=== PATIENT | male | born 1990 | race Hispanic/Latino ===

== ENCOUNTER 2016-12-17 08:13 | Emergency (ER) | payer OTHER ==
[2016-12-17 08:20] VITALS: BP 141/82; PULSE 116; RESP 20; TEMP 98.2; O2SAT 95
[2016-12-17] MEDS ORDERED: Albuterol-Ipratrop 3 mg / 0.5 (3 ml) UD IH STA (08:38)
--- NOTE | 2016-12-17 08:42 | C.PDOC ---
History Of Present Illness 26 yr old male presents to the ER for evaluation of cough and congestion for 1 day. Patient reports he smokes cigarettes, 1 pack a day. Patient denies fever, chills, chest pain, SOB, nausea, vomiting, weakness or numbness. Time Seen by Provider: 12/17/16 08:15 Chief Complaint (Nursing): Cough, Cold, Congestion History Per: Patient History/Exam Limitations: no limitations Onset/Duration Of Symptoms: Days (1) Current Symptoms Are (Timing): Still Present Location Of Pain: None Sick Contacts (Context): None Past Medical History Reviewed: Historical Data, Nursing Documentation, Vital Signs Vital Signs: Last Vital Signs Temp 98.2 F 12/17/16 08:16 Pulse 116 H 12/17/16 08:16 Resp 20 12/17/16 08:16 BP 141/82 12/17/16 08:16 Pulse Ox 95 12/17/16 08:51 - Medical History PMH: Anxiety, Asthma, Back Problems, Bronchitis Surgical History: Appendectomy Family History: States: No Known Family Hx - Social History Hx Tobacco Use: Yes (1 pack a day) Hx Alcohol Use: Yes Hx Substance Use: No - Immunization History Hx Tetanus Toxoid Vaccination: Yes Hx Influenza Vaccination: No Hx Pneumococcal Vaccination: No Review Of Systems Except As Marked, All Systems Reviewed And Found Negative. Constitutional: Negative for: Fever, Chills ENT: Positive for: Nose Congestion Cardiovascular: Negative for: Chest Pain Respiratory: Positive for: Cough. Negative for: Shortness of Breath Gastrointestinal: Negative for: Nausea, Vomiting Neurological: Negative for: Weakness, Numbness Physical Exam - Physical Exam Appears: Well, Non-toxic, No Acute Distress Skin: Normal Color, Warm, Dry Head: Atraumatic, Normacephalic Eye(s): bilateral: Normal Inspection, PERRL, EOMI Ear(s): Bilateral: Normal Oral Mucosa: Moist Throat: Normal, No Erythema, No Exudate Neck: Normal, Normal ROM, Supple Chest: Symmetrical, No Tenderness Cardiovascular: Rhythm Regular, No Friction Rub, No Murmur Respiratory: Normal Breath Sounds, No Rales, No Wheezing Extremity: Normal ROM, No Swelling Neurological/Psych: Oriented x3, Normal Speech, Normal Motor Gait: Steady ED Course And Treatment O2 Sat by Pulse Oximetry: 95 - Radiology CXR: Interpreted by Me, Viewed By Me CXR Interpretation: Yes: No Acute Disease. No: Pnemothorax Progress Note: Patient refused nebulizer and requested discharge Reassessment Condition: Unchanged Medical Decision Making Medical Decision Making: PLAN: * CXR * Albuterol IH Disposition Counseled Patient/Family Regarding: Studies Performed, Diagnosis, Need For Followup, Rx Given - Disposition Referrals: [facility] [Outside] [facility] [Outside] Disposition: HOME/ ROUTINE Disposition Time: 09:00 Condition: GOOD Additional Instructions: Follow up with clnic or PMD for further evaluation Prescriptions: Albuterol HFA [Ventolin HFA 90 mcg/actuation (8 g)] 2 puff IH [id number] PRN #1 unit PRN Reason: Cough Instructions: Upper Respiratory Infection (ED) - POA Present On Arrival: None - Clinical Impression Clinical Impression: Upper respiratory infection - PA / FAMILY NURSE PRACTITIONER / Resident Statement MD/DO has reviewed & agrees with the documentation as recorded. - Scribe Statement The provider has reviewed the documentation as recorded by the Scribe Clara Hayes All medical record entries made by the Romibtim were at my direction and personally dictated by me. I have reviewed the chart and agree that the record accurately reflects my personal performance of the history, physical exam, medical decision making, and the department course for this patient. I have also personally directed, reviewed, and agree with the discharge instructions and disposition.
--- NOTE | 2016-12-17 09:02 | RAD ---
HISTORY: Cough COMPARISON: Comparison is made to the previous study dated 09/29/2016 TECHNIQUE: Chest PA and lateral FINDINGS: LUNGS: No active pulmonary disease. PLEURA: No significant pleural effusion identified. No pneumothorax apparent. CARDIOVASCULAR: Normal. OSSEOUS STRUCTURES: No significant abnormalities. VISUALIZED UPPER ABDOMEN: Normal. OTHER FINDINGS: None. IMPRESSION: No radiographic evidence of pneumonia.
== END 2016-12-17 09:10 | disposition home or self-care (01) ==
LOC: C.ER 08:13
DX: J06.9 Acute upper respiratory infection, unspecified (principal); Z72.0 Tobacco use

== ENCOUNTER 2016-12-19 17:33 | Inpatient (IN) | payer MEDICAID, OTHER ==
[2016-12-19 18:30] VITALS: O2SAT 99
--- NOTE | 2016-12-19 22:34 | C.PDOC ---
History Of Present Illness 26 year old patient presents to the ED requesting admission to detox from heroin and Xanax. Patient is not pre-screened. He was in a detox program a few months ago, but he relapsed. Patient admits to his last use being just prior to arrival. Patient states he feels like he is withdrawing. Patient denies chest pain, shortness of breath, vomiting, abdominal pain, suicidal or homicidal ideation. Time Seen by Provider: 12/19/16 22:28 Chief Complaint (Nursing): Substance Abuse History Per: Patient History/Exam Limitations: no limitations Onset/Duration Of Symptoms: Other Suicide/Self Injury Attempted (Context): None Modifying Factor(s): Narcotics Severity: None Recent travel outside of the [place]: No Past Medical History Reviewed: Historical Data, Nursing Documentation, Vital Signs Vital Signs: Last Vital Signs Temp 98.9 F 12/20/16 01:05 Pulse 90 12/20/16 01:05 Resp 18 12/20/16 01:05 BP 114/71 12/20/16 01:05 Pulse Ox 99 12/20/16 01:08 - Medical History PMH: Anxiety, Asthma, Back Problems, Bronchitis Surgical History: Appendectomy Family History: States: Unknown Family Hx - Social History Hx Tobacco Use: Yes (1 pack a day) Hx Alcohol Use: Yes Hx Substance Use: Yes - Immunization History Hx Tetanus Toxoid Vaccination: Yes Review Of Systems Except As Marked, All Systems Reviewed And Found Negative. Cardiovascular: Negative for: Chest Pain Respiratory: Negative for: Shortness of Breath Gastrointestinal: Negative for: Vomiting, Abdominal Pain Psych: Negative for: Suicidal ideation Physical Exam - Physical Exam Appears: Non-toxic, No Acute Distress Skin: Warm, Dry Head: Atraumatic, Normacephalic Neck: Normal ROM, Supple Chest: Symmetrical Cardiovascular: Rhythm Regular Respiratory: No Rales, No Rhonchi, No Wheezing Gastrointestinal/Abdominal: Soft, No Tenderness, No Guarding Back: Normal Inspection, No CVA Tenderness Extremity: Normal ROM Neurological/Psych: Oriented x3, Normal Speech, Normal Cognition ED Course And Treatment - Laboratory Results Result Diagrams: 12/20/16 01:11 O2 Sat by Pulse Oximetry: 99 (RA) Pulse Ox Interpretation: Normal Progress Note: Plan: -Labs. -Ativan, Catapres Medical Decision Making Medical Decision Making: Pt informed no beds are available for detox at this time. Patient states if he gets discharged, then he will kill himself. Pt placed in 1:1 labs sent seen by crisis and after discussion with dr Moscoso pt to be admitted to 5E Disposition Counseled Patient/Family Regarding: Need For Followup - Disposition Disposition: HOSPITALIZED Disposition Time: 00:59 Condition: FAIR - Clinical Impression Clinical Impression: Severe opioid use disorder, Major depress dis, severe - Scribe Statement The provider has reviewed the documentation as recorded by the Romibtim Fajardo Provider Attestation: All medical record entries made by the Romibtim were at my direction and personally dictated by me. I have reviewed the chart and agree that the record accurately reflects my personal performance of the history, physical exam, medical decision making, and the department course for this patient. I have also personally directed, reviewed, and agree with the discharge instructions and disposition. Decision To Admit - Pt Status Changed To: Hospital Disposition Of: Inpatient - Admit Certification Admit to Inpatient:: After my assessment, the patient will require hospitalization for at least two midnights. This is because of the severity of symptoms shown, intensity of services needed, and/or the medical risk in this patient being treated as an outpatient. - InPatient: Physician Admission Certification: I certify that this patient requires 2 or more midnights of care for the following reason:: protocol - . Bed Request Type: Psychiatry Admitting Physician: Reynaldo Moscoso Patient Diagnosis: Severe opioid use disorder, Major depress dis, severe
[2016-12-20 01:15] LABS: BASO % 0.7 % (0.0-2.0); EOS % 0.6 % (0.0-4.0); HEMATOCRIT 39.6 % (35.0-51.0); LYMPH # 1.1 K/uL (1.0-4.3); LYMPH % 22.3 % (20.0-40.0); MEAN CELL VOLUME 87.1 fL (80.0-94.0); MEAN CORPUSCULAR HEMOGLOBIN 28.9 pg (27.0-31.0); MEAN CORPUSCULAR HGB CONC 33.2 g/dL (33.0-37.0); MEAN PLATELET VOLUME 8.3 fL (7.2-11.7); MONO # 0.6 K/uL (0.0-0.8); MONO % 13.1 % (0.0-10.0); NRBC % 0.1 % (0.0-2.0); RED CELL DISTRIBUTION WIDTH 13.6 % (11.5-14.5); WHITE BLOOD COUNT 4.8 K/uL (4.8-10.8)
[2016-12-20 01:34] LABS: CHLORIDE 98 mmol/L (98-107)
[2016-12-20 01:35] LABS: ALB/GLOB RATIO 1.3 (1.0-2.1); ALCOHOL SERUM < 10 mg/dl (0-10); ALKALINE PHOSPHATASE 92 U/L (38-126); ALT/SGPT 247 U/L (21-72); AST/SGOT 82 U/L (17-59); BILIRUBIN,TOTAL 0.6 mg/dL (0.2-1.3); BLOOD UREA NITROGEN 11 mg/dL (9-20); CALCIUM 8.6 mg/dl (8.6-10.4); CARBON DIOXIDE 24 mmol/L (22-30); GFR AFRICAN-AMERICAN > 60; GLUCOSE,RANDOM 86 mg/dL (75-110); POTASSIUM 3.7 mmol/L (3.6-5.2); SODIUM 137 mmol/L (132-148)
[2016-12-20 01:54] LABS: RBC URINE 2 /hpf (0-3); URINE BILIRUBIN NEGATIVE (NEGATIVE); URINE BLOOD NEGATIVE (NEGATIVE); URINE COLOR Amber (YELLOW); URINE GLUCOSE (UA) NORMAL (Normal); URINE KETONE TRACE mg/dL (NEGATIVE); URINE LEUKOCYTE ESTERASE NEG Leu/uL (Negative); URINE PROTEIN 1+ mg/dL (NEGATIVE); WBC URINE 4 /hpf (0-5)
[2016-12-20] MEDS ORDERED: Aluminum Hydroxide/Magnesium Hydroxide Susp (30 mL) PO PRN (10:27)
--- NOTE | 2016-12-20 13:36 | PCM.PSYCH ---
Initial Psychiatric Evaluation - Initial Psychiatric Evaluation Type of Admission: Voluntary Legal Status: Capacity Chief Complaint (in patient's own words): "I was depressed" History of Present Illness and Precipitating Events: The pt is seen, chart reviewed and case discussed... He is known to the senior technical writer from detox admission. This is a 26 yo WM, single with 3 children, all<10 yo, unemployed and living at [facility] last 3 weeks. He says he was discharged administratively due to using heroin with 4 other men. He regrets relapsing and blames another man. He [facility], used up to 40 bags IV per day, plus 4-6 mg xanax daily and 1 ppd cigarettes. Denies others. He feels depressed and had SI but no plans. He claims he could have attempted had he not been admitted. Dep sxs positive, and anxiety, no hero or psychosis. This is his 7th detox and no rehab (except for 2 months at in ). No psych admissions as well. Past psych hx: Denies Family psych hx: Mother had dep/anxiety and brother was an alcoholic. Mo abused her painkillers too. Medical hx: HTN. No meds Current Medications: Active Medications Generic Name Dose Route Start Last Admin Trade Name Freq PRN Reason Stop Dose Admin Al Hydrox/Mg Hydrox/Simethicone 30 ml 12/20/16 10:27 Maalox 30 Ml PO TID PRN Indigestion / Heartburn Clonidine HCl 0.1 mg 12/20/16 10:27 Catapres PO Q8 PRN COWS Score More or Equal to 5 Fluoxetine HCl 20 mg 12/20/16 13:45 Prozac PO DAILY DIONICIO Loperamide HCl 2 mg 12/20/16 10:27 Imodium PO Q8 PRN Diarrhea Methadone HCl 15 mg 12/20/16 10:00 12/20/16 10:51 Methadone PO 12/23/16 09:59 15 mg Q24H DIONICIO Administration Taper Nicotine 1 patch 12/20/16 13:00 12/20/16 13:05 Nicoderm Cq TD 1 patch DAILY DIONICIO Administration Ondansetron HCl 4 mg 12/20/16 10:27 12/20/16 10:51 Zofran Tab PO 4 mg Q8 PRN Administration Nausea/Vomiting Trazodone HCl 100 mg 12/20/16 02:16 12/20/16 02:33 Desyrel PO 100 mg HS PRN Administration Insomnia Past Psychiatric History - Past Psychiatric History Previous Treatment History: None Pertinent Medical Hx (Current Medical&Sleep Prob, Allergies): Allergies Allergy/AdvReac Type Severity Reaction Status Date / Time shellfish derived Allergy Severe ANAPHYLAXIS Verified 09/28/16 12:46 traZODone [Desyrel] 50 mg PO HS PRN #30 tab 09/29/16 Albuterol HFA [Ventolin HFA 90 mcg/actuation (8 g)] 2 puff IH [id number] PRN #1 unit 12/17/16 Gabapentin [Neurontin] 600 mg PO BID 12/17/16 Review of Systems - Neurological Neurological: UNREMARKABLE - Psychiatric Psychiatric: Abnormal Sleep Pattern, Anhedonia, Anxiety, Depression, Difficulty Concentrating. absent: Hallucinations, Homicidal Ideation, Paranoia, Suicidal Ideation Mental Status Examination - Personal Presentation Personal Presentation: Looks stated age - Affect Affect: Constricted - Motor Activity Motor Activity: Calm - Reliability in Providing Information Reliability in Providing Information: Good - Speech Speech: Organized - Mood Mood: Depressed, Anxious - Formal Thought Process Formal Thought Process: No Impairment - Cognitive Functions Orientation: Person, Place, Situation, Time Sensorium: Drowsy Estimate of Intelligence: Average Judgement: Intact, as evidence by: Insight regarding need for hospitalization Memory: Recent intact, as evidence by: Ability to recall events of the day, Remote intact, as evidenced by: Abilit to recall sig. life events - Risk Risk: Seizure, Withdrawal, Diminished functioning - Strength & Assets Inventory Strength & Assets Inventory: Cooperative - Limitations Limitations: Living alone, Other (homeless and unemployed) DSM 5 DX - DSM 5 DSM 5 Diagnosis: Depressive d/o - unspecified Opioid use d/o -severe Opioid withdrawal Sedative, hypnotic use d/o -severe - Recommended/Plan of Treatment Treatment Recommendations and Plan of Treatment: Depression: - Prozac - Support and psychoed - CBt - Attend groups and activities Opioids: - Methadone detox - As needed meds - [place] for abstinence - refer to rehab Sedative hypnotic: - Librium detox 32 min Projected ELOS: 5-6 days Prognosis: Good with treatment
--- NOTE | 2016-12-21 16:10 | PCM.PYCHPN ---
Psychiatric Progress Note - Psychiatric Progress Note Patient seen today, length of contact: length of contact: 20 min Patient Chief Complaint: "I feel terrible" Problems Identified/Issues Discussed: The pt is seen, chart reviewed, case discussed with staff. Patient currently is experiencing anxiety. He feels his heart racing, shaking, and has a stuffy nose. He experiences hot and cold intolerance. Admits to nausea and vomiting. He vomited four times since last night. Denies abdominal pain. Pt denies thoughts of hurting himself or others. Denies visual or auditory hallucinations. Pt only slept a total of 1 hour the night before. After care discussed, support and psychoeducation given. Medical Problems: hypertension Medication Change: Yes (Methadone taper) Medical Record Reviewed: Yes Mental Status Examination - Cognitive Function Orientation: Person, Place, Situation, Time Memory: Intact Attention: WNL Concentration: WNL Association: WNL Fund of Knowledge: WN - Mood Mood: Depressed, Anxious - Affect Affect: Constricted - Speech Speech: Appropriate - Formal Thought Process Formal Thought Process: No Impairment - Suicidal Ideation Suicidal Ideation: No - Homicidal Ideation Homicidal Ideation: No Goal/Treatment Plan - Goal/Treatment Plan Need for Continued Stay: Remain at risks for inpatient hospitalization, Severe depression anxiety, Discharge may exacerbated symptoms Progress Toward Problem(s) and Goals/Treatment Plan: Depression: - Prozac - Support and psychoed - CBt - Attend groups and activities Opioids: - Methadone detox - As needed meds - [place] for abstinence - refer to rehab Sedative hypnotic: - Librium detox Estimated Date of D/C: 12/26/16 - Smoking Cessation Smoking Cessation Initiated: Yes
--- NOTE | 2016-12-22 14:31 | PCM.PYCHPN ---
Psychiatric Progress Note - Psychiatric Progress Note Patient seen today, length of contact: length of contact: 20 min Patient Chief Complaint: "I'm a little better" Problems Identified/Issues Discussed: Pt was seen, chart reviewed, and case discussed with staff. Pt is compliant with treatment, without any adverse effects. Reports continued body aches, however overall condition is improving. Nausea and vomiting have resolved. Denies abdominal pain, fever, chills, diaphoresis, agitation, suicidal ideation, homicidal ideation, and hallucinations. Pt states he plans on moving to [facility] and starting MAT following discharge. Psychoeducation and support given. Medical Problems: hypertension Medication Change: Yes (Methadone taper) Medical Record Reviewed: Yes Mental Status Examination - Cognitive Function Orientation: Person, Place, Situation, Time Memory: Intact Attention: WNL Concentration: WNL Association: WNL Fund of Knowledge: WNL - Mood Mood: Anxious - Affect Affect: Constricted - Speech Speech: Appropriate - Formal Thought Process Formal Thought Process: No Impairment - Suicidal Ideation Suicidal Ideation: No - Homicidal Ideation Homicidal Ideation: No Goal/Treatment Plan - Goal/Treatment Plan Need for Continued Stay: Remain at risks for inpatient hospitalization, Discharge may exacerbated symptoms Progress Toward Problem(s) and Goals/Treatment Plan: Depression: - Prozac - Support and psychoed - CBt - Attend groups and activities Opioids: - Methadone detox - As needed meds - [place] for abstinence - Attend groups and activities - refer to rehab Sedative hypnotic: - Librium detox Estimated Date of D/C: 12/26/16
--- NOTE | 2016-12-23 16:43 | PCM.PYCHPN ---
Psychiatric Progress Note - Psychiatric Progress Note Patient seen today, length of contact: length of contact: 20 min Patient Chief Complaint: "I haven't been sleeping" Problems Identified/Issues Discussed: Pt was seen, chart reviewed, and case discussed with staff. Pt complaint with treatment. Only complaint is poor sleep, despite taking trazodone. Pt denies myalgias, nausea, vomiting, abdominal pain, fever, chills, diaphoresis, suicidal ideation, homicidal ideation and hallucinations. Pt will be calling programs and making calls to obtain grants to organize aftercare today. Psychoeducation and support given. Medical Problems: hypertension Medication Change: No (Methadone taper completed ) Medical Record Reviewed: Yes Mental Status Examination - Cognitive Function Orientation: Person, Place, Situation, Time Memory: Intact Attention: WNL Concentration: WNL Association: WNL Fund of Knowledge: WNL - Mood Mood: Anxious - Affect Affect: Constricted - Speech Speech: Appropriate - Formal Thought Process Formal Thought Process: No Impairment - Suicidal Ideation Suicidal Ideation: No - Homicidal Ideation Homicidal Ideation: No Goal/Treatment Plan - Goal/Treatment Plan Need for Continued Stay: Remain at risks for inpatient hospitalization, Discharge may exacerbated symptoms Progress Toward Problem(s) and Goals/Treatment Plan: Depression: - Prozac - Support and psychoed - CBt - Attend groups and activities Opioids: - Methadone detox - As needed meds - [place] for abstinence - Attend groups and activities - refer to rehab Sedative hypnotic: - Librium detox Estimated Date of D/C: 12/26/16 - Smoking Cessation Smoking Cessation Initiated: No
--- NOTE | 2016-12-24 11:27 | PCM.PYCHPN ---
Psychiatric Progress Note - Psychiatric Progress Note Patient seen today, length of contact: 15 min Patient Chief Complaint: I am feeling a little better Problems Identified/Issues Discussed: The pt is seen, chart reviewed, case discussed with staff. The pt is compliant with medications and reports no side-effects. Pt. reports improvement in his sleep and mood. His symptoms are improving but needs more time to stabilize. After care discussed, support and psychoeducation given. Medication Change: Yes (Increase Neurontin) Medical Record Reviewed: Yes Mental Status Examination - Cognitive Function Orientation: Person, Place, Situation, Time Memory: Intact Attention: WNL Concentration: WNL Association: WNL Fund of Knowledge: WNL - Mood Mood: Anxious - Affect Affect: Constricted - Speech Speech: Appropriate - Formal Thought Process Formal Thought Process: No Impairment - Suicidal Ideation Suicidal Ideation: No - Homicidal Ideation Homicidal Ideation: No Goal/Treatment Plan - Goal/Treatment Plan Need for Continued Stay: Remain at risks for inpatient hospitalization, Discharge may exacerbated symptoms Progress Toward Problem(s) and Goals/Treatment Plan: Depressive d/o - unspecified Opioid use d/o -severe Opioid withdrawal Sedative, hypnotic use d/o -severe - Recommended/Plan of Treatment Treatment Recommendations and Plan of Treatment: Depression: - Prozac - Support and psychoed - CBt - Attend groups and activities Opioids: - Methadone detox - As needed meds - [place] for abstinence - refer to rehab Sedative hypnotic: - Librium detox Estimated Date of D/C: 12/26/16 - Smoking Cessation Smoking Cessation Initiated: Yes
--- NOTE | 2016-12-25 14:22 | PCM.PYCHPN ---
Psychiatric Progress Note - Psychiatric Progress Note Patient seen today, length of contact: 16 min Patient Chief Complaint: I am feeling much better Problems Identified/Issues Discussed: The pt is seen, chart reviewed, case discussed with staff. The pt is compliant with medications and reports no side-effects. Pt. reports improvement in his sleep and mood. His symptoms are improving and he is ready to be discharged tomorrow. After care discussed, support and psychoeducation given. Medication Change: No Medical Record Reviewed: Yes Mental Status Examination - Cognitive Function Orientation: Person, Place, Situation, Time Memory: Intact Attention: WNL Concentration: WNL Association: WNL Fund of Knowledge: WNL - Mood Mood: Anxious - Affect Affect: Constricted - Speech Speech: Appropriate - Formal Thought Process Formal Thought Process: No Impairment - Suicidal Ideation Suicidal Ideation: No - Homicidal Ideation Homicidal Ideation: No Goal/Treatment Plan - Goal/Treatment Plan Need for Continued Stay: Remain at risks for inpatient hospitalization, Discharge may exacerbated symptoms Progress Toward Problem(s) and Goals/Treatment Plan: Depressive d/o - unspecified Opioid use d/o -severe Opioid withdrawal Sedative, hypnotic use d/o -severe Depression: - Prozac - Support and psychoed - CBt - Attend groups and activities Opioids: - Methadone detox - As needed meds - [place] for abstinence - refer to rehab Sedative hypnotic: - Librium detox Estimated Date of D/C: 12/26/16 - Smoking Cessation Smoking Cessation Initiated: Yes
[2016-12-26 08:19] VITALS: BP 108/69; PULSE 54; RESP 20; TEMP 97.6
[2016-12-26] MEDS ORDERED: Benzocaine 10% Oral Anesthetic (12 ml) MM PRN (08:40)
--- NOTE | 2016-12-26 08:57 | PCM.PYCHDC ---
Mental Status Examination - Mental Status Examination Orientation: Person, Place, Situation, Time Memory: Intact Mood: Anxious Affect: Constricted Speech: Appropriate Attention: WNL Concentration: Poor Association: WNL Fund of Knowledge: WNL Formal Thought Process: No Impairment Suicidal Ideation: No Current Homicidal Ideation?: No Discharge Summary - Discharge Note Reason for Hospitalization: Depression, heroin detox Consultations:: List each consultation separately and include: 1. Reason for request. 2. Findings. 3. Follow-up Summary of Hospital Course include:: 1. Description of specific treatment plan utilized for patients during their course of treatmen. 2. Summarize the time- course for resolution of acute symptoms and/or regressed behaviors. 3. Describe issues identified and worked on during hospitalization. 4. Describe medication utilized. 5. Describe medical problems identified and treated. 6. Reassessment of suicide risk Summary of Hospital Course: The pt is seen, chart reviewed and case discussed. On admission: He is known to the jingle writer from detox admission. This is a 26 yo WM, single with 3 children, all<10 yo, unemployed and living at [facility] last 3 weeks. He says he was discharged administratively due to using heroin with 4 other men. He regrets relapsing and blames another man. He has stayed 3 weeks at the care home, used up to 40 bags IV per day, plus 4-6 mg xanax daily and 1 ppd cigarettes. Denies others. He feels depressed and had SI but no plans. He claims he could have attempted had he not been admitted. Dep sxs positive, and anxiety, no hero or psychosis. This is his 7th detox and no rehab (except for 2 months at in ). No psych admissions as well. Past psych hx: Denies Family psych hx: Mother had dep/anxiety and brother was an alcoholic. Mo abused her painkillers too. Medical hx: HTN. No meds Hospital course: The pt was admitted and started on treatment with psychotherapy, support, psychoeducation and medications. TX and CBT used. The pt attended groups and activities, as well as milieu therapy. All the risks and benefits of medications are discussed and the patient understood and agreed. He was med-seeking, unmotivated, and had poor insight. After care discussed with the patient. He decided to go [facility] where his mo lives but on the day of discharge he did not wait for [facility] and was seen outside the hospital walking around. He was waiting for another patient who is also being dc'ed and that pt had subs abuse too. He is warned about relapse risk. - Final Diagnosis (DSM 5) Condition upon Discharge: FAIR DSM 5: Depression - unspecified Opioid use d/o - severe Opioid withdrawal Sedative, hypnotic anxiolytic use d/o - severe Disposition: HOME/ ROUTINE Follow-up Treatment Plan: Continue below medications after discharge. Follow after care plan as discussed. [place] when there is a bed. Use relapse prevention skills Return to ER or call 911 if suicidal, homicidal or symptoms relapse. Stay away from stress, alcohol and drugs. Prescriptions/Medication Reconciliation: traZODone [Desyrel] 100 mg PO HS PRN #30 tab PRN Reason: Insomnia Gabapentin [Neurontin] 600 mg PO TID #90 cap FLUoxetine [Prozac] 20 mg PO DAILY #30 cap - Smoking Cessation Smoking Cessation Medication prescribed: No - Antipsychotic Medications Pt discharged on 2 or more routine antipsychotic medications: No
== END 2016-12-26 10:30 | disposition home or self-care (01) | DRG 745 ==
LOC: C.ER 17:33 → C.5E 12-20 00:57
PROVIDERS: ADMIT Psychiatry & Neurology Psychiatry; ATTEND Psychiatry & Neurology Psychiatry
PROC: HZ2ZZZZ Detoxification Services for Substance Abuse Treatment (ICD-10-PCS; principal; 2016-12-20)
PROC: GZ56ZZZ Individual Psychotherapy, Supportive (ICD-10-PCS; 2016-12-20)
DX: F11.23 Opioid dependence with withdrawal (principal); I10 Essential (primary) hypertension; J45.909 Unspecified asthma, uncomplicated; Z87.891 Personal history of nicotine dependence; F32.9 Major depressive disorder, single episode, unspecified; F41.9 Anxiety disorder, unspecified; F19.10 Other psychoactive substance abuse, uncomplicated; F15.10 Other stimulant abuse, uncomplicated

== ENCOUNTER 2017-01-04 23:16 | Inpatient (IN) | payer MEDICAID, OTHER ==
[2017-01-05 00:49] LABS: BASO # 0.1 K/uL (0.0-0.2); EOS # 0.1 K/uL (0.0-0.7); EOS % 1.4 % (0.0-4.0); HEMATOCRIT 42.7 % (35.0-51.0); LYMPH # 2.3 K/uL (1.0-4.3); LYMPH % 27.5 % (20.0-40.0); MEAN CELL VOLUME 87.5 fL (80.0-94.0); MEAN CORPUSCULAR HEMOGLOBIN 29.2 pg (27.0-31.0); MEAN CORPUSCULAR HGB CONC 33.3 g/dL (33.0-37.0); MEAN PLATELET VOLUME 8.4 fL (7.2-11.7); MONO # 0.7 K/uL (0.0-0.8); MONO % 8.8 % (0.0-10.0); NRBC % 0.1 % (0.0-2.0); RED CELL DISTRIBUTION WIDTH 13.6 % (11.5-14.5); WHITE BLOOD COUNT 8.4 K/uL (4.8-10.8)
[2017-01-05 00:58] LABS: CHLORIDE 97 mmol/L (98-107); SODIUM 137 mmol/L (132-148)
[2017-01-05 00:59] LABS: POTASSIUM 4.1 mmol/L (3.6-5.2)
[2017-01-05 01:01] LABS: ALB/GLOB RATIO 1.3 (1.0-2.1); AST/SGOT 81 U/L (17-59); BILIRUBIN,TOTAL 0.5 mg/dL (0.2-1.3); CARBON DIOXIDE 26 mmol/L (22-30); GFR AFRICAN-AMERICAN > 60; TOTAL PROTEIN 8.1 g/dL (6.3-8.3)
[2017-01-05 01:02] LABS: ALCOHOL SERUM < 10 mg/dl (0-10); ALKALINE PHOSPHATASE 77 U/L (38-126); ALT/SGPT 127 U/L (21-72); BLOOD UREA NITROGEN 12 mg/dL (9-20); CALCIUM 9.1 mg/dl (8.6-10.4); GLUCOSE,RANDOM 125 mg/dL (75-110)
--- NOTE | 2017-01-05 01:40 | C.PDOC ---
Time Seen by Provider: 01/05/17 00:15 Chief Complaint (Nursing): Psychiatric Evaluation History Per: Patient Onset/Duration Of Symptoms: Days Current Symptoms Are (Timing): Still Present Suicide/Self Injury Attempted (Context): None Modifying Factor(s): Narcotics Severity: Moderate Associated Symptoms: Depression, Suicidal Thoughts. denies: Suicidal Plan Additional History Per: Prior Records Past Medical History Reviewed: Historical Data, Nursing Documentation, Vital Signs Vital Signs: Last Vital Signs Temp 98 F 01/04/17 23:22 Pulse 108 H 01/04/17 23:22 Resp 20 01/04/17 23:22 BP 130/90 01/04/17 23:22 Pulse Ox 97 01/05/17 01:40 - Medical History PMH: Anxiety, Asthma, Back Problems, Bronchitis, Depression, HTN Surgical History: Appendectomy - [facility] DETOXIFICATION SERVICES FOR SUBSTANCE ABUSE TREATMENT (12/20/16) INDIVIDUAL PSYCHOTHERAPY, SUPPORTIVE (12/20/16) Family History: States: Unknown Family Hx - Social History Hx Tobacco Use: Yes (1 pack a day) Hx Alcohol Use: No Hx Substance Use: Yes (IVDU Heroin) - Immunization History Hx Tetanus Toxoid Vaccination: Yes Hx Influenza Vaccination: No Hx Pneumococcal Vaccination: No Review Of Systems Except As Marked, All Systems Reviewed And Found Negative. Constitutional: Negative for: Fever, Weakness Cardiovascular: Negative for: Chest Pain Respiratory: Negative for: Shortness of Breath Gastrointestinal: Negative for: Vomiting, Abdominal Pain Genitourinary: Negative for: Dysuria Musculoskeletal: Negative for: Neck Pain Neurological: Negative for: Weakness, Numbness, Seizures Physical Exam - Physical Exam Appears: Non-toxic, No Acute Distress Skin: Normal Color, Warm, Dry Head: Atraumatic Eye(s): bilateral: PERRL Neck: Normal ROM, Supple Cardiovascular: Rhythm Regular Respiratory: Normal Breath Sounds, No Accessory Muscle Use Gastrointestinal/Abdominal: Soft, No Tenderness Back: No CVA Tenderness Extremity: Normal ROM, Other (Track gautam on arms) Neurological/Psych: Oriented x3, Normal Motor, Normal Sensation ED Course And Treatment - Laboratory Results Result Diagrams: 01/05/17 00:43 01/05/17 00:43 Lab Interpretation: No Changes Compared To Prior Results O2 Sat by Pulse Oximetry: 97 Pulse Ox Interpretation: Normal Progress Note: Pt is medically stable for psychiatric admission. Disposition Counseled Patient/Family Regarding: Studies Performed, Diagnosis, Smoking Cessation - Disposition Disposition: HOSPITALIZED Disposition Time: 01:55 Condition: STABLE - Clinical Impression Clinical Impression: Major depression, Drug abuse Decision To Admit - Pt Status Changed To: Hospital Disposition Of: Inpatient - Admit Certification Admit to Inpatient:: After my assessment, the patient will require hospitalization for at least two midnights. This is because of the severity of symptoms shown, intensity of services needed, and/or the medical risk in this patient being treated as an outpatient. - InPatient: Physician Admission Certification: I certify that this patient requires 2 or more midnights of care for the following reason:: Psych. - . Bed Request Type: Psychiatry Admitting Physician: aCssandra Guerra Patient Diagnosis: Major depression, Drug abuse
[2017-01-05 02:07] LABS: RBC URINE 1 /hpf (0-3); URINE BILIRUBIN NEGATIVE (NEGATIVE); URINE BLOOD NEGATIVE (NEGATIVE); URINE COLOR Amber (YELLOW); URINE GLUCOSE (UA) NORMAL (Normal); URINE KETONE TRACE mg/dL (NEGATIVE); URINE LEUKOCYTE ESTERASE NEG Leu/uL (Negative); URINE PROTEIN 1+ mg/dL (NEGATIVE); WBC URINE 1 /hpf (0-5)
[2017-01-05 02:33] VITALS: O2SAT 99
[2017-01-05] MEDS ORDERED: Aluminum Hydroxide/Magnesium Hydroxide Susp (30 mL) PO PRN (04:50)
--- NOTE | 2017-01-05 15:58 | PCM.PSYCH ---
Initial Psychiatric Evaluation - Initial Psychiatric Evaluation Type of Admission: Voluntary Legal Status: Capacity Chief Complaint (in patient's own words): "I'm depressed and started using again." History of Present Illness and Precipitating Events: Pt is a 26 yo male, single with 3 children who live with their mother, unemployed and recently was kicked out of [facility] where he had been staying. Pt is well known from recent admission 12/19-12/26/16 for depressive disorder and opiate withdrawal. States his plan was to go to his mothers house in [facility] and follow up there. However, pt relapsed immediately following discharge when his friend picked him up and they used heroin together. States he 's been using 50 bags of heroin per day, IV. Complains of withdrawal symptoms including abdominal pain, nausea, diarrhea, bodyahces and chills. Also admits to occasional cocaine use. Smokes 1 pack per day of cigarettes. Denies all other substances including benzodiazepines, alcohol, PCP, stimulants, and ketamine. History of 8 detox and no rehab. Pt's plan is to return to his mother' s house and attend a rehab program. Since being discharged, pt states he's been living in the streets causing him to feel depressed and suicidal without a plan. Also complains of anhedonia, anxiety, and poor sleep. Denies homicidal ideation, visual and auditory hallucinations, and manic symptoms. Psych Hx: depressive disoder. One previous inpatient psych hospitalization. Family Psych Hx: Mother- anxiety, depression, abused painkillers. Brother- anxiety, depression, alcohol abuse. Father- alcohol abuse PMHx: Asthma Meds: denies Current Medications: Active Medications Generic Name Dose Route Start Last Admin Trade Name Freq PRN Reason Stop Dose Admin Al Hydrox/Mg Hydrox/Simethicone 30 ml 01/05/17 04:50 Maalox 30 Ml PO TID PRN Indigestion / Heartburn Clonidine HCl 0.1 mg 01/05/17 04:50 Catapres PO Q8 PRN COWS Score More or Equal to 5 Diphenhydramine HCl 50 mg 01/05/17 04:50 Benadryl PO Q6 PRN Extra Pyramidal Symptoms Loperamide HCl 2 mg 01/05/17 04:50 Imodium PO Q8 PRN Diarrhea Nicotine 1 patch 01/05/17 11:00 01/05/17 11:58 Nicoderm Cq TD 1 patch DAILY DIONICIO Administration Ondansetron HCl 4 mg 01/05/17 04:50 Zofran Tab PO Q8 PRN Nausea/Vomiting Pneumococcal Polyvalent Vaccine 0.5 ml 01/06/17 10:05 Pneumovax 23 Vaccine IM 01/06/17 10:06 .ONCE ONE Trazodone HCl 50 mg 01/05/17 22:00 Desyrel PO HS [facility] Past Psychiatric History - Past Psychiatric History Pertinent Medical Hx (Current Medical&Sleep Prob, Allergies): Allergies Allergy/AdvReac Type Severity Reaction Status Date / Time shellfish derived Allergy Severe ANAPHYLAXIS Verified 01/04/17 23:27 Albuterol HFA [Ventolin HFA 90 mcg/actuation (8 g)] 2 puff IH [id number] PRN #1 unit 12/17/16 FLUoxetine [Prozac] 20 mg PO DAILY #30 cap 12/26/16 Gabapentin [Neurontin] 600 mg PO TID #90 cap 12/26/16 traZODone [Desyrel] 100 mg PO HS PRN #30 tab 12/26/16 Review of Systems - Constitutional Constitutional: Chills. absent: Fever, Sweats - Gastrointestinal Gastrointestinal: Abdominal Pain, Diarrhea, Nausea. absent: Constipation, Vomiting - Musculoskeletal Musculoskeletal: Myalgias - Neurological Neurological: UNREMARKABLE - Psychiatric Psychiatric: Abnormal Sleep Pattern, Anhedonia, Anxiety, Depression, Suicidal Ideation. absent: Auditory Hallucinations, Homicidal Ideation, Visual Hallucinations, Tactile Hallucinations Mental Status Examination - Personal Presentation Personal Presentation: Looks stated age - Affect Affect: Constricted - Motor Activity Motor Activity: Calm - Reliability in Providing Information Reliability in Providing Information: Fair - Speech Speech: Organized - Mood Mood: Depressed, Anxious - Formal Thought Process Formal Thought Process: No Impairment - Obsessions/Compulsions Obsessions: No Compulsions: No - Cognitive Functions Orientation: Person, Place, Situation, Time Sensorium: Alert Attention/Concentration: Attentive Estimate of Intelligence: Below average Judgement: Imparied, as evidence by: Poor judgement, Imparied, as evidence by: Lack of insight into illness Memory: Recent intact, as evidence by: Ability to recall events of the day, Remote intact, as evidenced by: Abilit to recall sig. life events - Risk Risk: Withdrawal - Limitations Limitations: Other (homeless) DSM 5 DX - DSM 5 DSM 5 Diagnosis: Major depression, severe, recurrent Opioid use disorder- severe Opioid withdrawal cocaine use disorder-mild - Recommended/Plan of Treatment Treatment Recommendations and Plan of Treatment: Depression: -Supportive therapy and CBT -attend groups and activities -Prozac -Contract for safety Opioids: -Methadone taper -As needed meds -IN and CBT -attend groups and activities -Refer to rehab -consider MAT following rehab Cocaine: -IN for abstinence -gabapentin Nicotine -Patch 33 minutes Projected ELOS: 5 days Prognosis: good w tx - Smoking Cessation Smoking Cessation Initiated: Yes
[2017-01-06] MEDS ORDERED: Pneumococcal 23-Valent Vaccine IM ONE (10:05)
--- NOTE | 2017-01-06 14:54 | PCM.PYCHPN ---
Psychiatric Progress Note - Psychiatric Progress Note Patient seen today, length of contact: 16 min Patient Chief Complaint: "I'm still withdrawing" Problems Identified/Issues Discussed: The pt is seen, chart reviewed, case discussed with staff. The pt is compliant with medications and reports no side-effects. Symptoms are improving but needs more time to stabilize. He is med seeking claiming he is in [facility]dw (he is not in signif. wdw) After care discussed, he now wants to go to [facility] in and called them but failed to disclose he was calling from psych [facility]. Support and psychoeducation given. AK and CBT used briefly. Medication Change: Yes (detox changes daily) Medical Record Reviewed: Yes Mental Status Examination - Cognitive Function Orientation: Person, Place, Situation, Time Memory: Impaired Attention: WNL Concentration: Poor Association: WNL Fund of Knowledge: Poor - Mood Mood: Depressed, Anxious - Affect Affect: Constricted - Speech Speech: Appropriate - Formal Thought Process Formal Thought Process: No Impairment - Suicidal Ideation Suicidal Ideation: No - Homicidal Ideation Homicidal Ideation: No Goal/Treatment Plan - Goal/Treatment Plan Need for Continued Stay: Discharge may exacerbated symptoms, Severe functional impairment Progress Toward Problem(s) and Goals/Treatment Plan: Depression: -Supportive therapy and CBT -attend groups and activities -Proza -Contract for safety Opioids: -Methadone taper -As needed meds -AK and CBT -attend groups and activities -Refer to rehab at in -consider MAT following rehab Cocaine: -AK for abstinence -gabapentin Nicotine -Patch
--- NOTE | 2017-01-07 12:54 | PCM.PYCHPN ---
Psychiatric Progress Note - Psychiatric Progress Note Patient seen today, length of contact: 16 min Patient Chief Complaint: I'm feeling a little better Problems Identified/Issues Discussed: Patient seen and evaluated, chart reviewed and discussed with the nurse. The patient reports improvement in his mood but still reports withdrawal symptoms including shakes, anxiety, headaches and sweating. As per the nurse patient is still depressed but he has started attending groups and meetings. He is taking medications and denies any side effects. Supportive therapy and psychoeducation were given. Medication Change: Yes (detox changes daily) Medical Record Reviewed: Yes Mental Status Examination - Cognitive Function Orientation: Person, Place, Situation, Time Memory: Impaired Attention: WNL Concentration: Poor Association: WNL Fund of Knowledge: Poor - Mood Mood: Depressed, Anxious - Affect Affect: Constricted - Speech Speech: Appropriate - Formal Thought Process Formal Thought Process: No Impairment - Suicidal Ideation Suicidal Ideation: No - Homicidal Ideation Homicidal Ideation: No Goal/Treatment Plan - Goal/Treatment Plan Need for Continued Stay: Discharge may exacerbated symptoms, Severe functional impairment Progress Toward Problem(s) and Goals/Treatment Plan: Major depression, severe, recurrent Opioid use disorder- severe Opioid withdrawal cocaine use disorder-mild - Recommended/Plan of Treatment Treatment Recommendations and Plan of Treatment: Depression: -Supportive therapy and CBT -attend groups and activities -Prozac -Contract for safety Opioids: -Methadone taper -As needed meds -AL and CBT -attend groups and activities -Refer to rehab -consider MAT following rehab Cocaine: -AL for abstinence -gabapentin Nicotine -Patch - Smoking Cessation Smoking Cessation Initiated: No
--- NOTE | 2017-01-08 22:15 | PCM.PYCHPN ---
Psychiatric Progress Note - Psychiatric Progress Note Patient seen today, length of contact: 16 min Patient Chief Complaint: i am feeling much better Problems Identified/Issues Discussed: Patient seen and evaluated, chart reviewed and discussed with the nurse. As per the nurse patient is doing much better and he has started attending groups and meetings. The patient reports improvement in his mood an improvement in the withdrawal symptoms. He is taking medications and denies any side effects. Supportive therapy and psychoeducation were given. Medication Change: Yes (detox changes daily) Medical Record Reviewed: Yes Mental Status Examination - Cognitive Function Orientation: Person, Place, Situation, Time Memory: Impaired Attention: WNL Concentration: WNL Association: WN Fund of Knowledge: WNL - Mood Mood: Anxious - Affect Affect: Constricted - Speech Speech: Appropriate - Formal Thought Process Formal Thought Process: No Impairment - Suicidal Ideation Suicidal Ideation: No - Homicidal Ideation Homicidal Ideation: No Goal/Treatment Plan - Goal/Treatment Plan Need for Continued Stay: Discharge may exacerbated symptoms, Severe functional impairment Progress Toward Problem(s) and Goals/Treatment Plan: Major depression, severe, recurrent Opioid use disorder- severe Opioid withdrawal cocaine use disorder-mild - Recommended/Plan of Treatment Treatment Recommendations and Plan of Treatment: Depression: -Supportive therapy and CBT -attend groups and activities -Prozac -Contract for safety Opioids: -Methadone taper -As needed meds -NE and CBT -attend groups and activities -Refer to rehab -consider MAT following rehab Cocaine: -NE for abstinence -gabapentin Nicotine -Patch - Smoking Cessation Smoking Cessation Initiated: No
--- NOTE | 2017-01-09 10:05 | PCM.PYCHDC ---
Mental Status Examination - Mental Status Examination Orientation: Person, Place, Situation, Time Memory: Intact Mood: Neutral Affect: Constricted Speech: Soft Attention: WNL Concentration: WNL Association: WNL Fund of Knowledge: WNL Formal Thought Process: No Impairment Description of patient's judgement and insight: good, fair Psychotic Thoughts and Behaviors: denies any AVH Suicidal Ideation: No Current Homicidal Ideation?: No Discharge Summary - Discharge Note Reason for Hospitalization: Pt is a 26 yo male, single with 3 children who live with their mother, unemployed and recently was kicked out of [facility] care home where he had been staying. Pt is well known from recent admission 12/19-12/26/16 for depressive disorder and opiate withdrawal. States his plan was to go to his mothers house in [facility] and follow up there. However, pt relapsed immediately following discharge when his friend picked him up and they used heroin together. States he 's been using 50 bags of heroin per day, IV. Complains of withdrawal symptoms including abdominal pain, nausea, diarrhea, bodyahces and chills. Also admits to occasional cocaine use. Smokes 1 pack per day of cigarettes. Denies all other substances including benzodiazepines, alcohol, PCP, stimulants, and ketamine. History of 8 detox and no rehab. Pt's plan is to return to his mother' s house and attend a rehab program. Since being discharged, pt states he's been living in the streets causing him to feel depressed and suicidal without a plan. Also complains of anhedonia, anxiety, and poor sleep. Denies homicidal ideation, visual and auditory hallucinations, and manic symptoms. Consultations:: List each consultation separately and include: 1. Reason for request. 2. Findings. 3. Follow-up Summary of Hospital Course include:: 1. Description of specific treatment plan utilized for patients during their course of treatmen. 2. Summarize the time- course for resolution of acute symptoms and/or regressed behaviors. 3. Describe issues identified and worked on during hospitalization. 4. Describe medication utilized. 5. Describe medical problems identified and treated. 6. Reassessment of suicide risk Summary of Hospital Course: During the course of his stay, patient (pt) started progressively improving and he no longer remained irritable, depressed, and suicidal. His mood was improved and he started attending groups and meetings and started socializing. Patient denied any feelings of hopelessness, helplessness, and worthlessness, denied any problem with the sleep or appetite, denied suicidal ideation or homicidal ideation. Pt denied any auditory or visual hallucinations. Some changes were made in his current medications and patient was discharged on following medications. He tolerated these medications very well and denied any side effects. - Final Diagnosis (DSM 5) Condition upon Discharge: STABLE DSM 5: Major depression, severe, recurrent Opioid use disorder- severe Opioid withdrawal cocaine use disorder-mild Disposition: HOME/ ROUTINE Follow-up Treatment Plan: Education: Pt was educated and counseled about the risks and benefits of taking and not taking medications. Pt was educated and counseled about the risks of drinking and abusing drugs. Pt was educated and counseled to go to the ER or call 911 if pt develop suicidal ideation or homicidal ideation, worsening of symptoms or severe side effects of the meds. Prescriptions/Medication Reconciliation: traZODone [Desyrel] 100 mg PO HS #30 tab Gabapentin [Neurontin] 400 mg PO TID #90 cap FLUoxetine [Prozac] 20 mg PO DAILY #30 cap - Smoking Cessation Smoking Cessation Medication prescribed: No - Antipsychotic Medications Pt discharged on 2 or more routine antipsychotic medications: No
[2017-01-09 11:12] VITALS: BP 119/76; PULSE 64; RESP 19; TEMP 97.4
== END 2017-01-09 12:55 | disposition home or self-care (01) | DRG 430 ==
LOC: C.ER 23:16 → C.5E 01-05 01:56
PROVIDERS: ADMIT Psychiatry & Neurology Psychiatry; ATTEND Psychiatry & Neurology Psychiatry
PROC: GZ3ZZZZ Medication Management (ICD-10-PCS; principal; 2017-01-05)
PROC: HZ81ZZZ Medication Management for Substance Abuse Treatment, Methadone Maintenance (ICD-10-PCS; 2017-01-05)
PROC: GZHZZZZ Group Psychotherapy (ICD-10-PCS; 2017-01-05)
PROC: GZ56ZZZ Individual Psychotherapy, Supportive (ICD-10-PCS; 2017-01-05)
DX: F33.2 Major depressive disorder, recurrent severe without psychotic features (principal); F11.23 Opioid dependence with withdrawal; F14.10 Cocaine abuse, uncomplicated; F17.210 Nicotine dependence, cigarettes, uncomplicated; I10 Essential (primary) hypertension; J45.909 Unspecified asthma, uncomplicated; Z91.013 Allergy to seafood

== ENCOUNTER 2017-04-21 14:41 | Inpatient (IN) | payer MEDICAID, OTHER ==
[2017-04-21 14:49] VITALS: BMI 24.0
[2017-04-21] MEDS ORDERED: Sodium Chloride 0.9% 1,000 ML IV ONE (15:11)
--- NOTE | 2017-04-21 15:11 | C.PDOC ---
History Of Present Illness 26 year old male presents to the ED requesting to speak to a psychiatrist- states he has been having feelings of anxiety, depression, and continues to use IV heroin. Patient admits to suicidal ideations, has vague plan of jumping off of a bridge. He states he wants to drop using heroin - last use was yesterday. Patient has no current physical complaints. Time Seen by Provider: 04/21/17 14:52 Chief Complaint (Nursing): Psychiatric Evaluation History Per: Patient History/Exam Limitations: no limitations Onset/Duration Of Symptoms: Persistent Current Symptoms Are (Timing): Still Present Suicide/Self Injury Attempted (Context): None Modifying Factor(s): Narcotics Severity: Moderate Associated Symptoms: Depression, Suicidal Thoughts, Suicidal Plan. denies: Anxiety, Paranoia Involuntary Hold By: Emergency Physician Past Medical History Reviewed: Historical Data, Nursing Documentation, Vital Signs Vital Signs: Last Vital Signs Temp 96.6 F L 04/24/17 07:50 Pulse 56 L 04/24/17 07:50 Resp 18 04/24/17 07:50 BP 106/67 04/24/17 07:50 Pulse Ox 100 04/21/17 17:49 - Medical History PMH: Anxiety, Asthma, Back Problems, Bronchitis, Depression, HTN Surgical History: Appendectomy - [facility] Procedures DETOXIFICATION SERVICES FOR SUBSTANCE ABUSE TREATMENT (12/20/16) GROUP PSYCHOTHERAPY (01/05/17) INDIVIDUAL PSYCHOTHERAPY, SUPPORTIVE (01/05/17) MEDICATION MANAGEMENT (01/05/17) MEDS MGMT FOR SUBSTANCE ABUSE TREATMENT, METHADONE MAINT (01/05/17) Family History: States: No Known Family Hx - Social History Hx Tobacco Use: Yes (1 pack a day) Hx Alcohol Use: No Hx Substance Use: Yes - Immunization History Hx Tetanus Toxoid Vaccination: Yes Hx Influenza Vaccination: No Hx Pneumococcal Vaccination: No Review Of Systems Except As Marked, All Systems Reviewed And Found Negative. Constitutional: Negative for: Fever, Chills Cardiovascular: Negative for: Chest Pain, Palpitations Respiratory: Negative for: Cough, Shortness of Breath Gastrointestinal: Negative for: Nausea, Vomiting, Abdominal Pain, Diarrhea Skin: Negative for: Rash Psych: Positive for: Depression, Suicidal ideation. Negative for: Anxiety, Psychosis Physical Exam - Physical Exam Appears: Well, Non-toxic, No Acute Distress, Other (appears anxious, malodorous) Skin: Normal Color, Warm, Dry, No Rash Head: Atraumatic, Normacephalic Eye(s): bilateral: Normal Inspection Oral Mucosa: Moist Neck: Supple Cardiovascular: Rhythm Regular, Other (Tachycardic) Respiratory: Normal Breath Sounds, No Rales, No Rhonchi, No Wheezing Gastrointestinal/Abdominal: Normal Exam, Bowel Sounds, Soft, No Tenderness, No Rebound Extremity: Normal ROM, No Tenderness, No Calf Tenderness, Capillary Refill (< 2 sec all digits ), No Deformity, Other (Track gautam on bilateral upper extremities. Mild surrounding erythema (at track gautam) at dorsal aspect of arms ) Extremity: Bilateral: Atraumatic, Normal ROM Pulses: Left Radial: Normal, Right Radial: Normal Neurological/Psych: Oriented x3, Normal Motor, Normal Sensation Gait: Steady ED Course And Treatment - Laboratory Results Result Diagrams: 04/21/17 16:16 04/21/17 16:16 O2 Sat by Pulse Oximetry: 99 (room air ) Pulse Ox Interpretation: Normal Progress Note: Blood work, UA, UDS ordered and reviewed. Patient given IV ativan and IV NS bolus. Patient noted to have mild cellulitis of forearms, will treat with PO antibiotics. Recommend Keflex 500mg PO BID and Bactrim DS PO BID x 7 days. 5:05pm- Patient medically cleared. Pending crisis. 5:40pm- Patient accepted for psychiatric admission by Dr. Moscoso. Reevaluation Time: 16:30 Reassessment Condition: Improved (Patient resting comfortabyly, heart rate improved.) Disposition - Disposition Disposition: HOSPITALIZED Disposition Time: 17:40 Condition: STABLE - POA Present On Arrival: None - Clinical Impression Clinical Impression: Depression, Heroin dependence, Cellulitis of forearm - Scribe Statement The provider has reviewed the documentation as recorded by the Scribe Judith Graham All medical record entries made by the Romibe were at my direction and personally dictated by me. I have reviewed the chart and agree that the record accurately reflects my personal performance of the history, physical exam, medical decision making, and the department course for this patient. I have also personally directed, reviewed, and agree with the discharge instructions and disposition. Decision To Admit - Pt Status Changed To: Hospital Disposition Of: Inpatient - Admit Certification Admit to Inpatient:: After my assessment, the patient will require hospitalization for at least two midnights. This is because of the severity of symptoms shown, intensity of services needed, and/or the medical risk in this patient being treated as an outpatient. - InPatient: Physician Admission Certification: I certify that this patient requires 2 or more midnights of care for the following reason:: see notes - . Bed Request Type: Psychiatry Admitting Physician: Reynaldo Moscoso Patient Diagnosis: Depression, Heroin dependence, Cellulitis of forearm
[2017-04-21] MEDS ORDERED: Sodium Chloride 0.9% 1,000 ML ONE (16:03)
[2017-04-21 16:21] LABS: BASO % 0.8 % (0.0-2.0); EOS % 0.4 % (0.0-4.0); HEMATOCRIT 39.4 % (35.0-51.0); LYMPH # 1.4 K/uL (1.0-4.3); LYMPH % 23.1 % (20.0-40.0); MEAN CORPUSCULAR HEMOGLOBIN 28.5 pg (27.0-31.0); MEAN CORPUSCULAR HGB CONC 34.5 g/dL (33.0-37.0); MEAN PLATELET VOLUME 7.4 fL (7.2-11.7); MONO # 0.9 K/uL (0.0-0.8); NRBC % 0.1 % (0.0-2.0); RED CELL DISTRIBUTION WIDTH 13.4 % (11.5-14.5)
[2017-04-21 16:23] LABS: MEAN CELL VOLUME 82.5 fL (80.0-94.0)
[2017-04-21 16:29] LABS: CHLORIDE 96 mmol/L (98-107); POTASSIUM 3.7 mmol/L (3.6-5.2); SODIUM 136 mmol/L (132-148)
[2017-04-21 16:31] LABS: BILIRUBIN,TOTAL 1.2 mg/dL (0.2-1.3); GFR AFRICAN-AMERICAN > 60
[2017-04-21 16:32] LABS: ALB/GLOB RATIO 1.1 (1.0-2.1); ALKALINE PHOSPHATASE 107 U/L (38-126); ALT/SGPT 75 U/L (21-72); AST/SGOT 39 U/L (17-59); BLOOD UREA NITROGEN 13 mg/dL (9-20); CARBON DIOXIDE 24 mmol/L (22-30); GLUCOSE,RANDOM 84 mg/dL (75-110)
[2017-04-21 16:33] LABS: ALCOHOL SERUM < 10 mg/dl (0-10)
[2017-04-21 17:20] LABS: RBC URINE 9 /hpf (0-3); URINE BACTERIA MANY (<OCC); URINE BILIRUBIN NEGATIVE (NEGATIVE); URINE BLOOD NEGATIVE (NEGATIVE); URINE COLOR Yellow (YELLOW); URINE GLUCOSE (UA) NORMAL (Normal); URINE KETONE TRACE mg/dL (NEGATIVE); URINE LEUKOCYTE ESTERASE NEG Leu/uL (Negative); URINE PROTEIN 1+ mg/dL (NEGATIVE); WBC URINE 3 /hpf (0-5)
[2017-04-21] MEDS ORDERED: Tmp-Smz 800 mg-160 mg DS Tab PO STA (17:43)
[2017-04-21] MEDS ORDERED: Tmp-Smz 800 mg-160 mg DS Tab ONE (17:54)
[2017-04-21] MEDS ORDERED: Aluminum Hydroxide/Magnesium Hydroxide Susp (30 mL) PO PRN (20:10)
--- NOTE | 2017-04-21 21:18 | PCM.BM ---
<Jenn Esquivel - Last Filed: 04/21/17 21:15> Treatment Plan Problems - Problems identified on initial assessmt Depression Date Initiated: 04/21/17 Time Initiated: 18:45 Assessment reference: NA Status: Active Opiate Abuse Date Initiated: 04/21/17 Time Initiated: 18:45 Assessment reference: NA Status: Active Treatment assets and liabiliti Patient Assests: cooperative, ADL independent, physically healthy, negotiates basic needs Patient Liabilities: live alone (Homeless), financial problems, relationship conflicts, substance abuse (Heroin, and cocaine) - Milieu Protocol Maintain good personal hygiene: daily Encourage regular showers, daily Remind patient to perform daily oral care Maintain personal safety: every shift Educate patient to report safety concerns to staff, every shift Monitor environment for contraband/sharps Medication safety: Monitor for expected outcome, potential side effects: every shift, Assess barriers to learning: every shift, Assess readiness for medication education: every shift <Reynaldo Moscoso - Last Filed: 04/22/17 13:28> - Diagnosis (1) Major depression Status: Acute Interventions: 04/22/17 13:28 * Assess/adjust medications daily and /or as needed * See patient on an individual basis 7x/week to assess symptoms of depression * Monitor for side effects & effectiveness of medications * (2) Opioid dependence Status: Acute Interventions: 04/22/17 13:28 * Assess 7x/week regarding severity of withdrawal * Educate regarding risks, benefits, side effects and alternatives of medications * Use Motivational Interviewing for abstinence * Use CBT for relapse prevention * Medication management for withdrawal symptoms * Encourage medication assisted treatment * <Hannah Calhoun - Last Filed: 04/24/17 11:00> Family Contact Family involvement: Family/SO is involved Family contact: Patient agrees to contact Family contact name: Mother Family contacted how many times per week?: 1 - Goals for Treatment Patient goals for treatment: "I want to go to rehab." Discharge/Continuing Care - Education Needs Education Needs: Patient Medication, Patient Coping Skills, Patient Placement options, Patient Community resources - Discharge Discharge Criteria: Tolerates medication w/o severe side effects, Free of Suicidal thoughts Discharge to:: Substance Abuse Rehab - Treatment Team Participation Discussed with Family/SO: Yes Was Patient/Family/SO present at Treatment Team Meeting: Yes
--- NOTE | 2017-04-22 13:37 | PCM.PSYCH ---
Initial Psychiatric Evaluation - Initial Psychiatric Evaluation Type of Admission: Voluntary Legal Status: Capacity Chief Complaint (in patient's own words): "I was depressed again" History of Present Illness and Precipitating Events: Pt is a 26 yo male, single with 2 children who live with pt's aunt (as their mo is in rehab), unemployed and homeless. Pt is well known from many recent admissions for depressive disorder and opioid withdrawal. States his plan was to go to his [facility] or rehab at [facility]. However, pt relapsed immediately following discharge when he "chose wrong friends agian." States he's been using 30 bags of heroin per day, IV. Complains of withdrawal symptoms including abdominal pain, nausea, diarrhea, body aches and chills, and started on methadone last night. Also admits to daily cocaine use, $30-40 a day IV. Smokes 1 pack per day of cigarettes. he also uses up to 80 mg Adderall every day from a friend Denies all other substances including benzodiazepines, alcohol, PCP, etc. History of 8-9 detox and no rehab. He says he feels depressed and suicidal without a plan. Also complains of anhedonia, anxiety, and poor sleep. Denies homicidal ideation, visual and auditory hallucinations, and manic symptoms. Psych Hx: depressive disoder. Two previous inpatient psych hospitalizations. No attempts Family Psych Hx: Mother- anxiety, depression, abused painkillers. Brother- anxiety, depression, alcohol abuse. Father- alcohol abuse PMHx: Asthma and back pain Current Medications: Active Medications Generic Name Dose Route Start Last Admin Trade Name Freq PRN Reason Stop Dose Admin Al Hydrox/Mg Hydrox/Simethicone 30 ml 04/21/17 20:10 Maalox 30 Ml PO TID PRN Indigestion / Heartburn Albuterol 1 puff 04/21/17 20:08 Ventolin Hfa 90 Mcg/Actuation (8 G) INH RQ4 PRN SOB Cephalexin Monohydrate 500 mg 04/21/17 22:00 04/22/17 09:36 Keflex PO 500 mg QID DIONICIO Administration Gabapentin 400 mg 04/22/17 14:00 Neurontin PO TID DIONICIO Hydroxyzine HCl 50 mg 04/21/17 20:08 Atarax PO Q6H PRN Anxiety Ibuprofen 600 mg 04/21/17 20:08 Motrin Tab PO Q6H PRN Pain, moderate (4-7) Loperamide HCl 2 mg 04/21/17 20:10 Imodium PO Q8 PRN Diarrhea Methadone HCl 15 mg 04/22/17 10:00 04/22/17 09:36 Methadone PO 04/26/17 09:59 15 mg Q24H DIONICIO Administration Taper Mirtazapine 15 mg 04/22/17 22:00 Remeron PO HS DIONICIO Nicotine 1 patch 04/22/17 11:45 Nicoderm Cq TD DAILY DIONICIO Ondansetron HCl 4 mg 04/21/17 20:10 Zofran Tab PO Q8 PRN Nausea/Vomiting Trazodone HCl 100 mg 04/21/17 20:08 04/21/17 22:14 Desyrel PO 100 mg HS PRN Administration Insomnia Past Psychiatric History - Past Psychiatric History Previous Treatment History: Inpatient Pertinent Medical Hx (Current Medical&Sleep Prob, Allergies): Allergies Allergy/AdvReac Type Severity Reaction Status Date / Time shellfish derived Allergy Severe ANAPHYLAXIS Verified 04/21/17 14:48 Albuterol HFA [Ventolin HFA 90 mcg/actuation (8 g)] 2 puff IH [id number] PRN #1 unit 12/17/16 Gabapentin [Neurontin] 600 mg PO TID #90 cap 12/26/16 FLUoxetine [Prozac] 20 mg PO DAILY #30 cap 01/09/17 traZODone [Desyrel] 50 mg PO HS 04/21/17 Review of Systems - Neurological Neurological: UNREMARKABLE - Psychiatric Psychiatric: Abnormal Sleep Pattern, Anhedonia, Anxiety, Behavioral Changes, Change in Appetite, Depression, Difficulty Concentrating, Irritability. absent : Confusion, Hallucinations, Homicidal Ideation, Suicidal Ideation Mental Status Examination - Personal Presentation Personal Presentation: Looks older than stated age - Affect Affect: Constricted - Motor Activity Motor Activity: Calm - Reliability in Providing Information Reliability in Providing Information: Good - Speech Speech: Organized - Mood Mood: Depressed, Anxious - Formal Thought Process Formal Thought Process: No Impairment - Cognitive Functions Orientation: Person, Place, Situation, Time Sensorium: Alert Attention/Concentration: Attentive Estimate of Intelligence: Average Judgement: Imparied, as evidence by: Poor judgement (his life-style, skipping rehab), Intact, as evidence by: Insight regarding need for hospitalization Memory: Recent intact, as evidence by: Ability to recall events of the day, Remote intact, as evidenced by: Abilit to recall sig. life events - Risk Risk: Withdrawal, Diminished functioning - Strength & Assets Inventory Strength & Assets Inventory: Cooperative - Limitations Limitations: Living alone DSM 5 DX - DSM 5 DSM 5 Diagnosis: Major depressive d/o - severe, recurrent, w/o psychotic sxs Opioid withdrawal opioid use d/o - severe Cocaine use d/o - severe Personality d/o - unspecified Stimulant use d/o - severe Tobacco use d/o - severe - Recommended/Plan of Treatment Treatment Recommendations and Plan of Treatment: depression: Remeron Support and psychoed Sobriety will help Refer to IOP Opioids: methadone detox Gabapentin for augmentation As needed meds and vitamins Attend groups and activities MD for abstinence and CBT for relapse prevention Support and psychoeducation Consider and encourage MAT Refer to after care Stimulants and cocaine: Gabapentin MD for abstinence Tobacco: Patch MD for abstinence Chantix on d/c 33 min Projected ELOS: 5 days Prognosis: fair Discharge Plan and Discharge Criteria: No severe dep sxs refer to rehab Consider MAT for opioids - Smoking Cessation Smoking Cessation Initiated: Yes
--- NOTE | 2017-04-23 19:34 | PCM.PYCHPN ---
Psychiatric Progress Note - Psychiatric Progress Note Patient seen today, length of contact: 17 min Patient Chief Complaint: "Very anxious" Problems Identified/Issues Discussed: The pt is seen, chart reviewed, case discussed with staff. Support given, CBT and HI used briefly No new symptoms reported, improving slowly and needs more time No SEs from medications, risks discussed. After care discussed - wants rehab and says he means it this time. Medication Change: Yes (detox changes daily) Medical Record Reviewed: Yes Mental Status Examination - Cognitive Function Orientation: Person, Place, Situation, Time Memory: Intact Attention: WNL Concentration: Poor Association: WNL Fund of Knowledge: WNL - Mood Mood: Depressed, Anxious - Affect Affect: Constricted - Speech Speech: Appropriate - Formal Thought Process Formal Thought Process: No Impairment - Suicidal Ideation Suicidal Ideation: No - Homicidal Ideation Homicidal Ideation: No Goal/Treatment Plan - Goal/Treatment Plan Need for Continued Stay: Discharge may exacerbated symptoms, Severe functional impairment Progress Toward Problem(s) and Goals/Treatment Plan: depression: Remeron Support and psychoed Sobriety will help Refer to IOP Opioids: methadone detox Gabapentin for augmentation As needed meds and vitamins Attend groups and activities HI for abstinence and CBT for relapse prevention Support and psychoeducation Consider and encourage MAT Refer to after care Stimulants and cocaine: Gabapentin HI for abstinence Tobacco: Patch HI for abstinence Chantix on d/c Estimated Date of D/C: 04/26/17
[2017-04-24 12:24] VITALS: O2SAT 99
--- NOTE | 2017-04-24 15:12 | PCM.PYCHPN ---
Psychiatric Progress Note - Psychiatric Progress Note Patient seen today, length of contact: 15 min Patient Chief Complaint: "I'm feeling OK." Problems Identified/Issues Discussed: The pt is seen, chart reviewed, case discussed with staff. Support given, CBT and FL used briefly Patient states he is experiencing wxw sxs; he states he is tearing and sneezing despite methadone tx. Patient states his mood is better. No new symptoms reported, improving slowly and needs more time No SEs from medications, risks discussed. After care discussed - wants rehab and will call places Medication Change: Yes (detox changes daily) Medical Record Reviewed: Yes Mental Status Examination - Cognitive Function Orientation: Person, Place, Situation, Time Memory: Intact Attention: WNL Concentration: WNL Association: WNL Fund of Knowledge: WNL - Mood Mood: Neutral - Affect Affect: Constricted - Speech Speech: Appropriate - Formal Thought Process Formal Thought Process: No Impairment - Suicidal Ideation Suicidal Ideation: No - Homicidal Ideation Homicidal Ideation: No Goal/Treatment Plan - Goal/Treatment Plan Need for Continued Stay: Discharge may exacerbated symptoms, Severe functional impairment Progress Toward Problem(s) and Goals/Treatment Plan: depression: Remeron Support and psychoed Sobriety will help Refer to IOP Opioids: methadone detox Gabapentin for augmentation As needed meds and vitamins Attend groups and activities FL for abstinence and CBT for relapse prevention Support and psychoeducation Consider and encourage MAT Refer to after care; ie [facility] or [facility] Stimulants and cocaine: Gabapentin FL for abstinence Tobacco: Patch FL for abstinence Chantix on d/c Estimated Date of D/C: 04/26/17
--- NOTE | 2017-04-25 16:49 | PCM.PYCHPN ---
Psychiatric Progress Note - Psychiatric Progress Note Patient seen today, length of contact: 16 min Patient Chief Complaint: "I'm feeling anxious." Problems Identified/Issues Discussed: The pt is seen, chart reviewed, case discussed with staff. Support given, CBT and AR used briefly Patient states his wxw sxs are still present, but are improving. Patient states that his depression is improving. Patient states he is still anxious. No SEs from medications, risks discussed. Patient wanted to discharge himself AMA, but after counseling by the physician the patient decided to stay and continue in a rehab program upon discharge. Medication Change: Yes (detox changes daily) Medical Record Reviewed: Yes Mental Status Examination - Cognitive Function Orientation: Person, Place, Situation, Time Memory: Intact Attention: WNL Concentration: WNL Association: WNL Fund of Knowledge: WNL - Mood Mood: Anxious - Affect Affect: Constricted - Speech Speech: Appropriate - Formal Thought Process Formal Thought Process: No Impairment - Suicidal Ideation Suicidal Ideation: No - Homicidal Ideation Homicidal Ideation: No Goal/Treatment Plan - Goal/Treatment Plan Need for Continued Stay: Discharge may exacerbated symptoms, Severe functional impairment Progress Toward Problem(s) and Goals/Treatment Plan: depression: Remeron Support and psychoed Sobriety will help Refer to IOP Opioids: methadone detox Gabapentin for augmentation As needed meds and vitamins Attend groups and activities AR for abstinence and CBT for relapse prevention Support and psychoeducation Consider and encourage MAT Refer to after care; ie [facility] or [facility] Stimulants and cocaine: Gabapentin AR for abstinence Tobacco: Patch AR for abstinence Chantix on d/c Estimated Date of D/C: 04/26/17
[2017-04-26] MEDS: Albuterol HFA 90 mcg/actuation (8 g) INH PRN ×2 (09:32→14:10)
--- NOTE | 2017-04-26 15:30 | PCM.PYCHPN ---
Psychiatric Progress Note - Psychiatric Progress Note Patient seen today, length of contact: 16 min Patient Chief Complaint: "I'm feeling good." Problems Identified/Issues Discussed: The pt is seen, chart reviewed, case discussed with staff. Support given, CBT and AL used briefly Patient states he is less anxious. Patient states that he is very motivated to get clean. Patient reports migraines from zoloft; switch to lexapro Patient reports he is willing to go to [facility] Medication Change: Yes (detox changes daily) Medical Record Reviewed: Yes Mental Status Examination - Cognitive Function Orientation: Person, Place, Situation, Time Memory: Intact Attention: WNL Concentration: WNL Association: WNL Fund of Knowledge: WNL - Mood Mood: Neutral - Affect Affect: Broad - Speech Speech: Appropriate - Formal Thought Process Formal Thought Process: No Impairment - Suicidal Ideation Suicidal Ideation: No - Homicidal Ideation Homicidal Ideation: No Goal/Treatment Plan - Goal/Treatment Plan Need for Continued Stay: Discharge may exacerbated symptoms, Severe functional impairment Progress Toward Problem(s) and Goals/Treatment Plan: depression: Remeron / lexapro Support and psychoed Sobriety will help Refer to IOP Opioids: methadone detox Gabapentin for augmentation As needed meds and vitamins Attend groups and activities AL for abstinence and CBT for relapse prevention Support and psychoeducation Consider and encourage MAT Refer to after care; [facility] Stimulants and cocaine: Gabapentin AL for abstinence Tobacco: Patch AL for abstinence Chantix on d/c Estimated Date of D/C: 04/27/17
--- NOTE | 2017-04-27 15:41 | PCM.PYCHPN ---
Psychiatric Progress Note - Psychiatric Progress Note Patient seen today, length of contact: 15 min Patient Chief Complaint: "I'm feeling anxious." Problems Identified/Issues Discussed: The pt is seen, chart reviewed, case discussed with staff. Support given, CBT and KS used briefly Patient states he is anxious again and could not sleep because of that. He states that he could not get clonidine last night because his BP was low. The pt is compliant with medications and reports no side-effects. Symptoms are improving but needs more time to stabilize. Inderal started for anxiety Support given Patient reports that he did not hear back from the [facility] in [place] Late entry: he is later accepted with decrease in some medications guaranteed. Medication Change: Yes (inderal) Medical Record Reviewed: Yes Mental Status Examination - Cognitive Function Orientation: Person, Place, Situation, Time Memory: Intact Attention: WNL Concentration: WNL Association: WNL Fund of Knowledge: WNL - Mood Mood: Anxious - Affect Affect: Broad - Speech Speech: Appropriate - Formal Thought Process Formal Thought Process: No Impairment - Suicidal Ideation Suicidal Ideation: No - Homicidal Ideation Homicidal Ideation: No Goal/Treatment Plan - Goal/Treatment Plan Need for Continued Stay: Discharge may exacerbated symptoms, Severe functional impairment Progress Toward Problem(s) and Goals/Treatment Plan: depression: Remeron / lexapro Support and psychoed Sobriety will help Refer to IOP Opioids: methadone detox Gabapentin for augmentation As needed meds and vitamins Attend groups and activities KS for abstinence and CBT for relapse prevention Support and psychoeducation Consider and encourage MAT Refer to after care; [facility] in [place], if not possible, then [facility]. Stimulants and cocaine: Gabapentin KS for abstinence Tobacco: Patch KS for abstinence Chantix on d/c Estimated Date of D/C: 04/28/17 - Smoking Cessation Smoking Cessation Initiated: Yes
--- NOTE | 2017-04-28 08:52 | PCM.PYCHDC ---
Mental Status Examination - Mental Status Examination Orientation: Person, Place, Situation, Time Memory: Intact Mood: Neutral Affect: Broad Speech: Appropriate Attention: WNL Concentration: WNL Association: WNL Fund of Knowledge: WNL Formal Thought Process: No Impairment Suicidal Ideation: No Current Homicidal Ideation?: No Discharge Summary - Discharge Note Reason for Hospitalization: Depression, suicidal ideation, heroin detox. Consultations:: List each consultation separately and include: 1. Reason for request. 2. Findings. 3. Follow-up Summary of Hospital Course include:: 1. Description of specific treatment plan utilized for patients during their course of treatmen. 2. Summarize the time- course for resolution of acute symptoms and/or regressed behaviors. 3. Describe issues identified and worked on during hospitalization. 4. Describe medication utilized. 5. Describe medical problems identified and treated. 6. Reassessment of suicide risk Summary of Hospital Course: The pt was admitted for depression and opioid d/o and started on treatment with psychotherapy, support, psychoeducation and medications. LA and CBT used. The pt attended groups and activities, as well as milieu therapy. All the risks and benefits of medications are discussed and the patient understood and agreed. The pt improved with the treatments provided. After care discussed with the patient; he will go to [facility] in [place] and [facility] [place] if needed to fill rx The patient was also recommended to find a PCP for [facility] care He was ambivalent about rehab and turned from [facility] few times. Nursing staff has heard him talking pejoratively about SA but to us he voiced more motivation this time. - Final Diagnosis (DSM 5) Condition upon Discharge: STABLE DSM 5: Major depressive d/o - severe, recurrent, w/o psychotic sxs Opioid withdrawal opioid use d/o - severe Cocaine use d/o - severe Personality d/o - unspecified Stimulant use d/o - severe Tobacco use d/o - severe Disposition: REHAB FACILITY/REHAB UNIT Follow-up Treatment Plan: Continue below medications after discharge. Follow after care plan as discussed; [facility] Use relapse prevention skills Stay away from opioids Set up healthcare with a PCP Prescriptions/Medication Reconciliation: Cephalexin [Keflex] 500 mg PO QID #8 cap Escitalopram [Lexapro] 10 mg PO DAILY #30 tab Gabapentin [Neurontin] 600 mg PO BID #60 cap Mirtazapine [Remeron] 15 mg PO HS #30 tab Propranolol [Inderal] 20 mg PO TID #90 tab QUEtiapine [Seroquel] 100 mg PO HS #30 tab traZODone [Desyrel] 50 mg PO HS PRN #30 tab PRN Reason: Insomnia - Smoking Cessation Smoking Cessation Medication prescribed: No - Antipsychotic Medications Pt discharged on 2 or more routine antipsychotic medications: No
[2017-04-28 09:40] VITALS: BP 137/85; PULSE 99; RESP 16; TEMP 98.2
== END 2017-04-28 09:20 | disposition designated cancer center or children's hospital (05) | DRG 426 ==
LOC: C.ER 14:41 → C.9E 17:44 → C.5E 18:33
PROVIDERS: ADMIT Psychiatry & Neurology Psychiatry; ATTEND Psychiatry & Neurology Psychiatry
DX: F32.9 Major depressive disorder, single episode, unspecified (principal); F11.20 Opioid dependence, uncomplicated; F14.20 Cocaine dependence, uncomplicated; F17.210 Nicotine dependence, cigarettes, uncomplicated